=== PATIENT | female | born 1995 ===

== ENCOUNTER → 2023-08-10 10:20 | Outpatient (REF) | payer OTHER, SELFPAY | LOC: HWRCS 10:20 | PROVIDERS: ATTENDING PHYSICIAN Internal Medicine Cardiovascular Disease | DX: R07.89 Other chest pain (principal) | CPT/HCPCS: 93306 ==

== ENCOUNTER 2024-09-08 12:47 | Emergency (ER) | payer OTHER, SELFPAY ==
[2024-09-08 12:54] VITALS: BP 141/72
[2024-09-08 13:06] LABS: % Basophils 0.5 % (0-2); % Eosinophils 0.8 % (0-6); % Immature Granulocytes 0.3 % (0-0.5); % Lymphocytes 23.8 % (20.5-51.1); % Monocytes 5.2 % (1.7-9.3); % Neutrophils 69.4 % (42.2-75.2); Absolute Basophils 0.1 10^3/uL (0-0.2); Absolute Eosinophils 0.1 10^3/uL (0-0.7); Absolute Lymphocytes 2.4 10^3/uL (1.2-3.4); Absolute Monocytes 0.5 10^3/uL (0.1-0.6); Hematocrit 35.3 % (37.0-47.0); Hemoglobin 12.2 g/dL (12.0-16.0); Mean Corp Hgb Conc. 34.6 g/dL (33.0-37.0); Mean Corpuscular Hgb 31.3 pg (27.0-31.0); Mean Corpuscular Volume 90.5 fL (81.0-99.0); Mean Platelet Volume 8.6 fL (7.4-10.4); Nucleated Red Blood Cells % 0 %; Platelet Count 283 10^3/uL (130-400); Red Cell Dist. Width 11.6 % (11.5-14.5); White Blood Cell Count 10.1 10^3/uL (4.8-10.8)
[2024-09-08 13:33] LABS: HCG, Serum Qualitative Screen Positive
[2024-09-08 13:40] LABS: ALT (SGPT) < 10 U/L (0-35); AST (SGOT) 17 U/L (14-36); Albumin 4.3 g/dl (3.5-5.0); Alkaline Phosphatase 40 U/L (38-126); Blood Urea Nitrogen 13 mg/dl (7-17); Calcium 9.8 mg/dl (8.4-10.2); Carbon Dioxide 23 mmol/L (22-30); Chloride 107 mmol/L (98-107); Glucose 94 mg/dl (70-99); Potassium 4.3 mmol/L (3.5-5.1); Sodium 137 mmol/L (135-145); Total Bilirubin 0.4 mg/dl (0.2-1.3); Total Protein 7.5 g/dl (6.3-8.2); eGFR > 60.00
[2024-09-08 13:52] VITALS: BMI 25.5
--- NOTE | 2024-09-08 14:26 | ED.GENMED ---
History of Present Illness
<PHILLY Donnelly - Last Filed: 09/10/24 00:01>
General
Chief Complaint: Problems
Source: patient
Exam Limitations: none
Time Seen by Provider: 09/08/24 13:26
Nursing documentation reviewed up to this point in time: agreed with
History of Present Illness
History of Present Illness:
28-year-old female presents to the ER for evaluation. Patient is currently 10 weeks last menstrual period July 25 presents to the ER for evaluation. She had some vaginal spotting last week and then spotting started again today. She denies
any cramping or pain. Patient has had multiple miscarriages in the past.
In the month prior to getting she did have a miscarriage. She is followed at [facility].
At this time she denies any bleeding or pain
She has no other complaints.
Review of Systems
<PHILLY Donnelly - Last Filed: 09/10/24 00:01>
Review of Systems
Allergies reviewed?: Yes
All Other Systems: ROS reviewed and negative except as documented in HPI and ROS
Constitutional: Reports no symptoms
Phy Exam
<PHILLY Donnelly - Last Filed: 09/10/24 00:01>
General Physical Exam
General Presentation: no apparent distress
General age: appears stated age
General Skin: warm and dry
General Habitus: normal
General Mental: alert
General Hydration: appears well hydrated
Gastrointestinal Exam
Gastrointestinal Exam: non tender and soft
Neurological Exam
Neurological Exam: alert and oriented x3
Musculoskeletal Exam
Musculoskeletal Exam: full ROM
Skin Exam
Skin Exam: normal color and warm/dry
Psychiatric Exam
Psychiatric Exam: normal mood/affect
Course
<PHILLY Donnelly - Last Filed: 09/10/24 00:01>
Orders/Labs/Results
Orders:
Orders
09/08/24 12:57
Test Result ONCE
1st Trimester US [US 1st Trimester] Urgent
Comment:
Reason For Exam: vaginal bleeding at 10 wks
09/08/24 13:00
Beta HCG Quantitative Urgent
Comment: ADD ON
Complete Blood Count/With Diff Urgent
Comprehensive Metabolic Panel Urgent
HCG, Serum Qualitative Screen Urgent
09/08/24 14:26
Add On- LAB Urgent
Tests Added?: HCG Quantitative
09/08/24 15:05
Blood Group&Type Urgent
09/08/24 15:38
Type+Screen Routine
BBK Wristband Number:
Abnormal Lab Results
09/08/24
13:00
RBC 3.90 L 10^6/uL
(4.20-5.40)
Hct 35.3 L %
(37.0-47.0)
MCH 31.3 H pg
(27.0-31.0)
Absolute Neuts (auto) 7.0 H 10^3/uL
(1.4-6.5)
Creatinine 0.5 L mg/dL
(0.6-1.0)
09/08/24 13:00
09/08/24 13:00
Vital Signs
Initial and Last Documented VS:
Initial Vital Signs
Temp Pulse Resp BP Pulse Ox
98.4 F 76 18 141/72 100
09/08/24 12:54 09/08/24 12:54 09/08/24 12:54 09/08/24 12:54 09/08/24 12:54
Last Documented Vital Signs
Temp Pulse Resp BP Pulse Ox
98.4 F 72 15 140/68 98
09/08/24 12:54 09/08/24 16:51 09/08/24 16:51 09/08/24 16:51 09/08/24 16:51
<Ruben Wilson PA-C - Last Filed: 09/08/24 23:45>
Orders/Labs/Results
Orders:
Orders
09/08/24 12:57
Test Result ONCE
1st Trimester US [US 1st Trimester] Urgent
Comment:
Reason For Exam: vaginal bleeding at 10 wks
09/08/24 13:00
Beta HCG Quantitative Urgent
Comment: ADD ON
Complete Blood Count/With Diff Urgent
Comprehensive Metabolic Panel Urgent
HCG, Serum Qualitative Screen Urgent
09/08/24 14:26
Add On- LAB Urgent
Tests Added?: HCG Quantitative
09/08/24 15:05
Blood Group&Type Urgent
09/08/24 15:38
Type+Screen Routine
BBK Wristband Number:
Abnormal Lab Results
09/08/24
13:00
RBC 3.90 L 10^6/uL
(4.20-5.40)
Hct 35.3 L %
(37.0-47.0)
MCH 31.3 H pg
(27.0-31.0)
Absolute Neuts (auto) 7.0 H 10^3/uL
(1.4-6.5)
Creatinine 0.5 L mg/dL
(0.6-1.0)
09/08/24 13:00
09/08/24 13:00
Vital Signs
Initial and Last Documented VS:
Initial Vital Signs
Temp Pulse Resp BP Pulse Ox
98.4 F 76 18 141/72 100
09/08/24 12:54 09/08/24 12:54 09/08/24 12:54 09/08/24 12:54 09/08/24 12:54
Last Documented Vital Signs
Temp Pulse Resp BP Pulse Ox
98.4 F 72 15 140/68 98
09/08/24 12:54 09/08/24 16:51 09/08/24 16:51 09/08/24 16:51 09/08/24 16:51
Information
Weeks gestation: N/A
Location: N/A
<PHILLY Donnelly - Last Filed: 09/10/24 00:01>
MDM/Problems Addressed
Differential Diagnosis Includes:
Not limited threat miscarriage less likely
MDM/Problems Addressed:
Patient is 28-year-old female approximately 10 weeks who presented with vaginal spotting no current spotting or bleeding presently. She has no complaints of pain. Abdomen soft nontender. Ultrasound shows a single IUP 10 weeks 4 days with
a heart rate of 161.
Patient is O+
Will DC with outpatient [facility] follow-up
<PHILLY Donnelly - Last Filed: 09/10/24 00:01>
*Radiology
Radiology exam reviewed: radiology read reviewed
*Pulse Oximetry
SaO2: 100
Oxygen Mode of Delivery: Room air
<Ruben Wilson PA-C - Last Filed: 09/08/24 23:45>
*Pulse Oximetry
Patient hypoxic: no
*Critical Care Note
Total Time (30-74mins, 75-104mins- exclusive of procedures): Not Applicable
<Ruben Wilson PA-C - Last Filed: 09/08/24 23:45>
Update Note
Update Note:
Received care of patient upon signout pending blood type and screen. While waiting for the type and screen to come back patient stated that she had to leave. 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 She could not wait for the blood to come back. She
was aware that if her blood type was Rh- she may require RhoGAM.
Blood type O+. No indication for RhoGAM
ED Attending Note
<PHILLY Donnelly - Last Filed: 09/10/24 00:01>
-
Portions of this chart may have been created with voice recognition software.� Occasional wrong word or��sound alike� substitutions may have occurred due to the inherent limitations of voice recognition software.
Discharge Plan
Departure
Patient Disposition: Home (Routine Discharge)
Date of Disposition: 09/08/24
Time of Disposition: 16:49
Patient with high blood pressure during this ER visit?: Yes
Condition: Fair
Covid-19: Not Applicable
Discharge Problem:
Threatened miscarriage
Instructions: Threatened Miscarriage (DC)
Referrals:
Taqueria Romero, DO [Family Provider]
Activity Restrictions/Additional Instructions:
Please follow-up with your [facility] next week .
call to make an appointment.
Avoid heavy lifting, no sexual intercourse until cleared by your [facility].
Return if any worsening of symptoms.
Interventions
Interventions:
*Risk Screen - Suicide Last Done: 09/08/24 12:54
*General Assessment Last Done: 09/08/24 12:54
*Neglect/Abuse Screening Last Done: 09/08/24 12:54
*Nursing Disposition Last Done: 09/08/24 16:51
ED-Female Genitourinary Assessment Last Done: 09/08/24 13:52
Discharge Date and Time
Discharge Date/Time: 09/08/24 16:52
Print Language: TRISTANIAN
[2024-09-08 16:51] VITALS: BP 140/68
== END 2024-09-08 16:52 | disposition home or self-care (01) ==
LOC: EMR 12:47
PROVIDERS: Emergency Medicine; EMERGENCY PHYSICIAN Emergency Medicine; FAMILY PHYSICIAN Family Medicine
DX: O20.0 Threatened abortion (principal); Z3A.10 10 weeks gestation of pregnancy
CPT/HCPCS: 99284; 76801; 80053; 84702; 84703; 85025; 86850; 86900; 86901